=== PATIENT | female | born 1970 | race American Indian/Alaskan Native ===

== ENCOUNTER 2021-03-26 14:50 | Emergency (ER) | payer SELFPAY ==
[2021-03-26 18:20] VITALS: BP 208/117
--- NOTE | 2021-03-26 18:30 | Event Note ---
ED Screening Note Date of service: 03/26/21 Time: 18:25 ED Screening Note: 51-year-old -[place] female presents to the emergency room concern for right total infection x1 week. Patient reports she has a history of diabetes and hypertension and CHF.. Patient states that she when she takes a bath or shower the water settles at the bottom and her feet tend to get waterlogged. Patient reports that she has been keeping her feet clean but noticed that she started to have a sore and a hole in 1 week. Patient then states that she started to have an odor from her toe. Patient reports that she takes her blood pressure medication but blood pressure is really elevated at 208/117. Patient denies any pain at this time. This initial assessment/diagnostic orders/clinical plan/treatment(s) is/are subject to change based on patients health status, clinical progression and re-assessment by fellow clinical providers in the ED. Further treatment and workup at subsequent clinical providers discretion. Patient/guardian urged not to elope from the ED as their condition may be serious if not clinically assessed and managed. Initial orders include:
[2021-03-26 18:50] LABS: Hematocrit 40.5 % (30.3-42.9); Hemoglobin 14.1 gm/dl (10.1-14.3); Mean Corpuscular HGB Conc 35 % (30-34); Mean Corpuscular Volume 88 fl (79-97); Platelet Count 190 K/mm3 (140-440); Red Blood Count 4.59 M/mm3 (3.65-5.03); Red Cell Distribution Width 12.6 % (13.2-15.2)
[2021-03-26 19:04] LABS: Erythrocyte Sedimentation Rate 70 mm/Hr (0-20)
[2021-03-26 19:07] LABS: Albumin 3.8 g/dL (3.9-5); Calcium 9.1 mg/dL (8.4-10.2)
--- NOTE | 2021-03-26 19:09 | XRay Report ---
RIGHT GREAT TOE 3 VIEWS INDICATION: Dry gangrene RT GREAT TOE. COMPARISON: No relevant prior imaging study available. FINDINGS: There is a large soft tissue ulcer along the plantar/medial aspect of the great toe. There is subtle resorptive change along the medial cortex of the base of the distal phalanx of the great toe. Mild osteoarthrosis changes are noted. IMPRESSION: 1. Large plantar/medial great toe ulcer with associated soft tissue gas. Deep to this there is subtle resorptive change along the medial cortex of the distal phalanx concerning for early osteomyelitis. Signer Name: Reinaldo Amezquita MD Signed: 03/26/2021 7:05 PM Workstation Name: [id number]
--- NOTE | 2021-03-27 10:28 | Event Note ---
Date: 03/27/21 Reviewed patient chart and noticed that patient has left without being treated. X-ray of toes shows some gas in her soft tissue with some cortical destruction early signs of osteomyelitis. I will called patient left her message that she should come back to the emergency room to be evaluated and treated. Phone numbers left on number that is in the chart.
== END 2021-03-28 18:30 ==
LOC: ED 14:50
DX: Z00.8 Encounter for other general examination (principal); Z53.21 Procedure and treatment not carried out due to patient leaving prior to being seen by health care provider
CPT/HCPCS: 36415; 80053; 85027; 85652